=== PATIENT | female | born 1990 | race Caucasian/White ===

== ENCOUNTER 2017-10-25 08:29 | Day surgery (SDC) | payer BC, OTHER ==
[2017-10-25] MEDS ORDERED: Lactated Ringers 1,000 ML IV SCH (09:00)
[2017-10-25] MEDS ORDERED: Sodium Chloride 0.9% 10 ML Syringe FLUSH PRN (09:00)
[2017-10-25] MEDS ORDERED: Propofol 200 MG/20 ML SDV IV ONE (10:50)
[2017-10-25] MEDS ORDERED: Midazolam 1 MG/ML 2 ML SDV IV ONE (10:50)
--- NOTE | 2017-10-25 11:09 | PCM.OPNOTE ---
- General Post-Op/Procedure Note Date of Surgery/Procedure: 10/25/17 Operative Procedure(s): egd with bx Findings: gastritis esophagitis hiatal hernia Pre Op Diagnosis: sx gerd Post-Op Diagnosis: gastritis. esophagitis. hiatal hernia Anesthesia Technique: MAC Primary Surgeon: Deep Ahn Anesthesia Provider: Matty Ricketts Pathology: stomach and distal esophagus Complications: None Condition: Good Free Text/Narrative:: see dictation #[id number]
--- NOTE | 2017-10-25 11:56 | OR ---
DATE OF OPERATION: 10/25/2017 SURGEON: Deep Ahn MD PROCEDURES PERFORMED: EGD with cold forceps biopsy. PREOPERATIVE DIAGNOSIS: Symptomatic gastroesophageal reflux disease. POSTOPERATIVE DIAGNOSES: Symptomatic gastroesophageal reflux disease as well as gastritis. INDICATIONS FOR PROCEDURE: This is a 27-year-old white female who has been followed for symptomatic gastroesophageal reflux disease. She has had a flare- up of her symptoms and was offered and accepted an upper endoscopy. DESCRIPTION OF PROCEDURE: After an excellent IV sedation was administered, the bite block was inserted. The flexible endoscope was passed without difficulty down the patient's esophagus and into the stomach. The stomach was insufflated. Scope was passed through the pylorus, to the second portion of the duodenum, and then slowly withdrawn. The following findings were noted. Duodenum was unremarkable. Stomach demonstrates mild gastritis as well as a hiatal hernia. Biopsies were taken. Esophagus, GE junction measured at 35 cm with some evidence of esophagitis just distal to the GE junction, and biopsies were taken. The remainder of the esophageal exam was unremarkable. Stomach was deflated as the scope was removed. The patient tolerated the procedure well and was taken to Recovery in a good condition. /[id number] /MODL
== END 2017-10-25 12:05 | disposition home or self-care (01) ==
LOC: FB.SDS 08:29
PROVIDERS: ATTEND Surgery
DX: K21.0 Gastro-esophageal reflux disease with esophagitis (principal); K29.50 Unspecified chronic gastritis without bleeding; J45.909 Unspecified asthma, uncomplicated; F17.210 Nicotine dependence, cigarettes, uncomplicated; Z79.899 Other long term (current) drug therapy; Z98.890 Other specified postprocedural states
CPT/HCPCS: 81025; 88305; 88313; 88342; J2250; J2704; J7120

== ENCOUNTER 2021-01-19 01:24 | Emergency (ER) | payer BC, OTHER ==
[2021-01-19] MEDS ORDERED: Ondansetron 4 MG Tab.DIS PO ONE (01:25)
[2021-01-19] MEDS ORDERED: Acetaminophen/HYDROcodone 325-5 MG Tab PO ONE (01:25)
[2021-01-19] MEDS ORDERED: LORazepam 1 MG Tab PO ONE (01:46)
[2021-01-19] MEDS ORDERED: Ondansetron 4 MG Tab.DIS PO PRN (01:47)
[2021-01-19] MEDS ORDERED: Morphine 15 MG Tab.ER PO ONE (01:48)
--- NOTE | 2021-01-19 01:55 | EDM.PDOC ---
ED HPI GENERAL MEDICAL PROBLEM - General Chief Complaint: General Stated Complaint: Fall secondary to inebriation Time Seen by Provider: 01/19/21 01:30 Source of Information: Reports: Patient, Family History Limitations: Reports: Intoxication - History of Present Illness INITIAL COMMENTS - FREE TEXT/NARRATIVE: 31 of head pain, jaw pain, and rib pain, all left-sided, after sustaining a fall in the parking lot of a bar. She was celebrating her birthday and tripped and fell in the parking lot while leaving the bar. She states that she drinks alcohol several times a week but rarely drinks more than 3 or 4 servings of alcohol a day. He also admits to using marijuana tonight but does not abuse any other drugs. Dates that she does not remember exactly how or where she hit her head but thinks that she may have fallen over a cinder block. Planes of pain on the left side of her head just posterior to her ear, left-sided jaw pain, and severe left rib pain. Left Jaw Pain Score (Numeric/FACES): 10 Left Pain Score (Numeric/FACES): 10 Left Head Pain Score (Numeric/FACES): 10 - Related Data Allergies Allergy/AdvReac Type Severity Reaction Status Date / Time No Known Allergies Allergy Verified 10/25/17 09:21 Home Meds: Home Meds Albuterol [Ventolin HFA] 1 - 2 puff INH BID PRN 10/24/17 [History] Pantoprazole Sodium [Protonix] 40 mg PO DAILY 10/24/17 [History] Ranitidine HCl [Ranitidine] 150 mg PO BID 10/24/17 [History] Past Medical History HEENT History: Reports: Impaired Vision Cardiovascular History: Reports: None Respiratory History: Reports: Asthma Gastrointestinal History: Reports: GERD Genitourinary History: Reports: None LICENSED STAFF MFT History: Reports: None Musculoskeletal History: Reports: None Neurological History: Reports: Concussion Psychiatric History: Reports: Depression Endocrine/Metabolic History: Reports: None Hematologic History: Reports: None Immunologic History: Reports: None Oncologic (Cancer) History: Reports: None Dermatologic History: Reports: None - Past Surgical History Head Surgeries/Procedures: Reports: None HEENT Surgical History: Reports: None Cardiovascular Surgical History: Reports: None Respiratory Surgical History: Reports: None GI Surgical History: Reports: Colonoscopy, EGD Endocrine Surgical History: Reports: None Neurological Surgical History: Reports: None Musculoskeletal Surgical History: Reports: None Oncologic Surgical History: Reports: None Social & Family History - Tobacco Use Tobacco Use Status *Q: Current Every Day Tobacco User Years of Tobacco use: 15 Packs/Tins Daily: 1 - Caffeine Use Caffeine Use: Reports: Coffee, Energy Drinks, Soda - Alcohol Use Days Per Week of Alcohol Use: 5 Number of Drinks Per Day: 4 Total Drinks Per Week: 20 - Recreational Drug Use Recreational Drug Use: Yes Drug Use in Last 12 Months: Yes Recreational Drug Type: Reports: Marijuana/Hashish ED ROS GENERAL - Review of Systems Review Of Systems: See Below Constitutional: Reports: No Symptoms HEENT: Reports: Dental Pain, Ear Pain, Other (Pain on left side of the skull, left jaw pain) Respiratory: Reports: No Symptoms Cardiovascular: Reports: No Symptoms Endocrine: Reports: No Symptoms GI/Abdominal: Reports: No Symptoms : Reports: No Symptoms Musculoskeletal: Reports: Muscle Stiffness Skin: Reports: Wound Neurological: Reports: Gait Disturbance Psychiatric: Reports: Agitation, Anxiety Hematologic/Lymphatic: Reports: No Symptoms Immunologic: Reports: No Symptoms ED EXAM, GENERAL - Physical Exam Exam: See Below Free Text/Narrative:: Patient appears inebriated. She does not follow commands. She was able to stand next to the bed without help. Neurological exam shows that proprioception is intact in the bilateral upper extremities, sensation intact, extraocular muscles intact. Exam Limited By: Intoxication General Appearance: Alert, Mild Distress Eye Exam: Bilateral Eye: EOMI, PERRL Ears: Normal External Exam, Hearing Grossly Normal Nose: Normal Inspection. No: Nasal Tenderness, Nasal Flaring Throat/Mouth: Other (Significant swelling on the proximal left mandible, patient is unable to open her mouth far enough for exam of teeth/oropharynx) Head: Facial Swelling, Facial Tenderness Neck: Other (Patient is able to move her head in all planes and does not complain of pain at this time) Respiratory/Chest: No Respiratory Distress, Lungs Clear, Normal Breath Sounds Cardiovascular: Normal Peripheral Pulses, Regular Rate, Rhythm, No Edema, No Murmur Peripheral Pulses: 2+: Radial (L), Radial (R), Dorsalis Pedis (L), Dorsalis Pedis (R) GI/Abdominal: Normal Bowel Sounds, Non-Tender Back Exam: Paraspinal Tenderness Extremities: Normal Inspection Neurological: Alert, Oriented Psychiatric: Anxious Skin Exam: Other (Patient has 3 or 4 areas of abrasion in the left temporal and parietal region without significant bleeding and no obvious deep laceration) Course - Vital Signs Text/Narrative:: Review of labs and imaging shows that labs were grossly within normal limits with only a very slightly elevated white blood cell count. Imaging shows no acute fracture of the skull, jaw, or ribs. Patient states that she is having difficulty taking a deep breath secondary to rib pain and is experiencing some nausea. She will be discharged to home with 4 [place]'s, 5/325 every 4-6 hours for pain and for Zofran ODT 4 mg every 4-6 hours for nausea. Is advised to follow-up with her primary care provider as soon as possible. I advised the patient that her x-rays and CT are negative but that she may have some damage to her teeth. I advised her to follow-up with dental as soon as possible. Last Recorded V/S: Last Vital Signs Temp 36.6 C 01/19/21 01:25 Pulse 101 H 01/19/21 01:25 Resp 18 01/19/21 01:25 BP 121/84 01/19/21 01:25 Pulse Ox 96 01/19/21 01:25 - Orders/Labs/Meds Orders: Active Orders 24 hr Category Date Time Status Head wo Cont [CT] Stat Exams 01/19/21 02:03 Taken Ribs 2V w Chest Lt [CR] Stat Exams 01/19/21 01:43 Taken Ondansetron [Zofran ODT] Med 01/19/21 01:47 Active 4 mg PO ONETIME PRN Medication Orders Ondansetron HCl (Ondansetron 4 Mg Tab.Dis) 4 mg PO ONETIME PRN PRN Reason: Nausea Last Admin: 01/19/21 01:57 Dose: 4 mg Documented by: FORTINO Labs: Laboratory Tests 01/19/21 01/19/21 01/19/21 Range/Units 02:05 02:05 02:05 WBC 11.1 H (3.0-10.3) x10-3/uL RBC 4.42 (3.60-5.20) x10(6)uL Hgb 13.4 (11.4-15.5) g/dL Hct 40.4 (34.2-48.2) % MCV 91.4 (76.7-100.5) fL MCH 30.3 (23.9-33.9) pg MCHC 33.1 (31.9-34.8) g/dL RDW 12.8 (12.3-16.5) % Plt Count 200 (151-488) x10(3)uL MPV 7.2 (7.1-12.4) fL Neut % (Auto) 53.2 (30.8-76.2) % Lymph % (Auto) 36.1 (18.4-52.1) % [place] % (Auto) 7.0 (4.4-15.7) % Eos % (Auto) 2.9 (0.6-8.1) % Baso % (Auto) 0.8 (0.2-1.5) % Neut # (Auto) 5.9 (1.5-6.3) x10-3/uL Lymph # (Auto) 4.0 (1.0-4.4) x10-3/uL [place] # (Auto) 0.8 (0.3-1.0) x10-3/uL Eos # (Auto) 0.3 (0.0-0.8) x10-3/uL Baso # (Auto) 0.1 (0.0-0.1) x10-3/uL Sodium 142 (135-145) mmol/L Potassium 3.5 (3.5-5.3) mmol/L Chloride 102 (100-110) mmol/L Carbon Dioxide 27 (21-32) mmol/L BUN 11 (7-18) mg/dL Creatinine 0.9 (0.55-1.02) mg/dL Est Cr Clr Drug Dosing TNP Estimated GFR (MDRD) > 60 (>60) BUN/Creatinine Ratio 12.2 (9-20) Glucose 105 (80-116) mg/dL Calcium 8.6 (8.6-10.2) mg/dL Total Bilirubin 0.2 (0.1-1.3) mg/dL AST 14 (5-25) IU/L ALT 28 (12-36) U/L Alkaline Phosphatase 44 L (56-112) IU/L Total Protein 7.5 (6.0-8.0) g/dL Albumin 4.1 (3.5-5.2) g/dL Globulin 3.4 g/dL Albumin/Globulin Ratio 1.2 Ethyl Alcohol 0.26 H* (<0.03) % Meds: Medications Generic Name Dose Route Start Last Admin Trade Name Giovanny PRN Reason Stop Dose Admin Ondansetron HCl 4 mg 01/19/21 01:47 01/19/21 01:57 Ondansetron 4 Mg Tab.Dis PO 4 mg ONETIME PRN Administration Nausea Discontinued Medications Generic Name Dose Route Start Last Admin Trade Name Giovanny PRN Reason Stop Dose Admin Lorazepam 0.5 mg 01/19/21 01:46 01/19/21 01:57 Lorazepam 1 Mg Tab PO 01/19/21 01:47 0.5 mg ONETIME ONE Administration Morphine Sulfate 5 mg 01/19/21 01:48 01/19/21 01:58 Morphine 15 Mg Tab.Er PO 01/19/21 01:49 5 mg ONETIME ONE Administration Departure - Departure Time of Disposition: 03:05 Disposition: Home, Self-Care 01 Clinical Impression: Rib pain on left side - Discharge Information *PRESCRIPTION DRUG MONITORING PROGRAM REVIEWED*: Not Applicable *COPY OF PRESCRIPTION DRUG MONITORING REPORT IN PATIENT KELLY: Not Applicable Instructions: Chest Wall Pain, [id number] Referrals: PCP,None [Primary Care Provider] - Doris Yan NP [Ordering Only Provider] - Forms: ED Department Discharge Additional Instructions: Patient discharged 5/325 and Zofran 4 mg ODT every 4-6 hours for pain and/or nausea. Patient advised to follow-up with primary care physician and dental. Sepsis Event Note (ED) - Evaluation Sepsis Screening Result: No Definite Risk - Focused Exam Vital Signs: Vital Signs Temp Pulse Resp BP Pulse Ox 01/19/21 01:25 36.6 C 101 H 18 121/84 96 - My Orders Last 24 Hours: My Active Orders 01/19/21 01:43 Ribs 2V w Chest Lt [CR] Stat 01/19/21 01:47 Ondansetron [Zofran ODT] 4 mg PO ONETIME PRN 01/19/21 02:03 Head wo Cont [CT] Stat - Assessment/Plan Last 24 Hours: My Active Orders 01/19/21 01:43 Ribs 2V w Chest Lt [CR] Stat 01/19/21 01:47 Ondansetron [Zofran ODT] 4 mg PO ONETIME PRN 01/19/21 02:03 Head wo Cont [CT] Stat
== END 2021-01-19 03:22 | disposition home or self-care (01) ==
LOC: FB.ED 01:24
DX: R07.81 Pleurodynia (principal); K21.9 Gastro-esophageal reflux disease without esophagitis; Z79.899 Other long term (current) drug therapy; Z72.0 Tobacco use
CPT/HCPCS: 36415; 70450; 71101; 80053; 80307; 85025; 99284; A9270